=== PATIENT | male | born 1960 | race Caucasian/White ===

== ENCOUNTER → 2022-07-11 | Outpatient (CLI) | payer OTHER ==
[~2022-07-11] MED LIST: AMOX250 PO; FLUO20 PO; NORT25; OXYACE5T PO; TAMS.4ER PO
== END | disposition home or self-care (01) ==
LOC: PLD 13:40 → LAB SHORT 13:40
DX: K14.0 Glossitis (principal)
CPT/HCPCS: 88305; 88312

== ENCOUNTER → 2023-04-20 | Outpatient (CLI) | payer OTHER ==
[2023-04-20 13:30] LABS: BASOPHILS ABSOLUTE AUTO 0.07 K/mm3 (0.00-0.23); BASOPHILS PERCENT AUTO 1 % (0-2); EOSINOPHILS ABSOLUTE AUTO 0.42 K/mm3 (0.00-0.68); EOSINOPHILS PERCENT AUTO 5 % (0-6); Hematocrit 43.7 % (37.0-53.0); Hemoglobin 15.3 g/dL (13.5-17.5); IMMATURE GRAN ABSOLUTE AUTO 0.09 K/mm3 (0.00-0.10); IMMATURE GRAN PERCENT AUTO 1 % (0-1); LYMPHOCYTES ABSOLUTE AUTO 1.42 K/mm3 (0.84-5.20); LYMPHOCYTES PERCENT AUTO 18 % (21-46); MONOCYTES ABSOLUTE AUTO 0.74 K/mm3 (0.16-1.47); MONOCYTES PERCENT AUTO 10 % (4-13); Mean Corpuscular HGB 31.9 pg (26.0-34.0); Mean Corpuscular Volume 91 fL (80-100); Mean Platelet Volume 9.6 fL (9.1-12.4); NEUTROPHILS ABSOLUTE AUTO 5.04 K/mm3 (1.96-9.15); NEUTROPHILS PERCENT AUTO 65 % (41-73); Platelet Count 272 K/mm3 (150-400); RDW Coefficient Variation 13.2 % (11.7-14.2); RDW Standard Deviation 43.5 fL (35.1-46.3); Red Blood Cell Count 4.79 M/mm3 (4.30-5.90); White Blood Cell Count 7.78 K/mm3 (4.00-11.30)
[2023-04-20 15:35] LABS: Alanine Aminotransfer (ALT/SGP 55 U/L (12-78); Albumin, Blood 3.6 g/dL (3.4-5.0); Albumin/Globulin Ratio 0.9 (0.8-1.8); Alk Phos 91 U/L (50-136); Anion Gap 5 mmol/L (6-16); Aspartate Aminotrans (AST/SGOT 41 U/L (12-37); Bilirubin, Total 0.6 mg/dL (0.1-1.0); Blood Urea Nitrogen 10 mg/dL (8-24); CHOL/HDL RATIO 5.4; CO2, Blood 26 mmol/L (21-32); Calcium, Blood 8.9 mg/dL (8.5-10.1); Chloride, Blood 107 mmol/L (98-108); Cholesterol 185 mg/dL (50-200); Glucose, Blood 146 mg/dL (70-99); HDL Cholesterol 34 mg/dL (>39); Low Density Lipoprotein Chol 102 mg/dL (0-110); Potassium, Blood 3.9 mmol/L (3.5-5.5); Prostate Specific Antigen 0.422 ng/mL (0.000-4.000); Sodium, Blood 138 mmol/L (136-145); Total Protein, Blood 7.6 g/dL (6.4-8.2); Triglycerides 247 mg/dL (30-160); Very Low Density Lipoprot Chol 49 mg/dL (6-32)
[2023-04-20 15:59] LABS: Bun/Creatinine Ratio 11.4 (12.0-20.0); Creatinine, Blood 0.88 mg/dL (0.60-1.20); Glomerular Filtration Rate 98 (60-); Thyroid Stimulating Hormone 0.717 uIU/mL (0.360-4.800)
[2023-04-21 08:11] LABS: HEMOGLOBIN A1C 6.1 % (4.8-5.6)
== END | disposition home or self-care (01) ==
LOC: LAB SHORT 12:32
PROVIDERS: Family Medicine
DX: I10 Essential (primary) hypertension (principal); N42.9 Disorder of prostate, unspecified; R73.01 Impaired fasting glucose
CPT/HCPCS: 80053; 80061; 83036; 84153; 84443; 85025

== ENCOUNTER → 2024-06-01 | Outpatient (CLI) | payer OTHER ==
[2024-06-01 15:26] LABS: BASOPHILS ABSOLUTE AUTO 0.06 K/mm3 (0.00-0.23); BASOPHILS PERCENT AUTO 1 % (0-2); EOSINOPHILS ABSOLUTE AUTO 0.45 K/mm3 (0.00-0.68); EOSINOPHILS PERCENT AUTO 6 % (0-6); Hematocrit 46.5 % (37.0-53.0); IMMATURE GRAN ABSOLUTE AUTO 0.04 K/mm3 (0.00-0.10); IMMATURE GRAN PERCENT AUTO 1 % (0-1); LYMPHOCYTES ABSOLUTE AUTO 1.56 K/mm3 (0.84-5.20); LYMPHOCYTES PERCENT AUTO 22 % (21-46); MONOCYTES ABSOLUTE AUTO 0.59 K/mm3 (0.16-1.47); MONOCYTES PERCENT AUTO 8 % (4-13); Mean Corpuscular HGB 30.9 pg (26.0-34.0); Mean Corpuscular HGB Conc 34.4 g/dL (31.5-36.5); Mean Corpuscular Volume 90 fL (80-100); Mean Platelet Volume 10.1 fL (9.1-12.4); NEUTROPHILS ABSOLUTE AUTO 4.54 K/mm3 (1.96-9.15); NEUTROPHILS PERCENT AUTO 63 % (41-73); Platelet Count 267 K/mm3 (150-400); RDW Coefficient Variation 12.5 % (11.7-14.2); RDW Standard Deviation 40.9 fL (35.1-46.3); Red Blood Cell Count 5.18 M/mm3 (4.30-5.90); White Blood Cell Count 7.24 K/mm3 (4.00-11.30)
[2024-06-01 15:53] LABS: Alanine Aminotransfer (ALT/SGP 26 U/L (12-78); Albumin, Blood 3.8 g/dL (3.4-5.0); Alk Phos 67 U/L (50-136); Anion Gap 10 mmol/L (3-11); Aspartate Aminotrans (AST/SGOT 24 U/L (12-37); Bilirubin, Total 0.8 mg/dL (0.1-1.0); Blood Urea Nitrogen 19 mg/dL (8-24); Bun/Creatinine Ratio 21.4 (12.0-20.0); CO2, Blood 27 mmol/L (21-32); Calcium, Blood 9.1 mg/dL (8.5-10.1); Chloride, Blood 110 mmol/L (98-108); Cholesterol 145 mg/dL (50-200); Creatinine, Blood 0.89 mg/dL (0.60-1.20); Globulin, Blood 3.9 g/dL (2.2-4.0); Glomerular Filtration Rate 97 (60-); Glucose, Blood 82 mg/dL (70-99); HDL Cholesterol 29 mg/dL (>39); LDL/HDL RATIO 3.2; Low Density Lipoprotein Chol 92 mg/dL (0-110); Potassium, Blood 4.9 mmol/L (3.5-5.5); Prostate Specific Antigen 0.606 ng/mL (0.000-4.000); Sodium, Blood 142 mmol/L (136-145); Thyroid Stimulating Hormone 0.681 uIU/mL (0.360-4.800); Total Protein, Blood 7.7 g/dL (6.4-8.2); Triglycerides 122 mg/dL (30-160); Very Low Density Lipoprot Chol 24 mg/dL (6-32)
== END ==
LOC: LAB 13:49 → LAB SHORT 13:49
PROVIDERS: Family Medicine
DX: N42.9 Disorder of prostate, unspecified (principal); R73.01 Impaired fasting glucose; I10 Essential (primary) hypertension; R53.83 Other fatigue
CPT/HCPCS: 80053; 80061; 83036; 84153; 84443; 85025

== ENCOUNTER → 2025-04-13 | Outpatient (CLI) | payer MEDICARE, OTHER ==
[2025-04-13 10:46] LABS: BASOPHILS ABSOLUTE AUTO 0.05 K/mm3 (0.00-0.23); BASOPHILS PERCENT AUTO 1 % (0-2); EOSINOPHILS ABSOLUTE AUTO 0.42 K/mm3 (0.00-0.68); EOSINOPHILS PERCENT AUTO 5 % (0-6); Hematocrit 44.1 % (37.0-53.0); Hemoglobin 15.7 g/dL (13.5-17.5); IMMATURE GRAN ABSOLUTE AUTO 0.06 K/mm3 (0.00-0.10); IMMATURE GRAN PERCENT AUTO 1 % (0-1); LYMPHOCYTES ABSOLUTE AUTO 1.47 K/mm3 (0.84-5.20); LYMPHOCYTES PERCENT AUTO 19 % (21-46); MONOCYTES ABSOLUTE AUTO 0.61 K/mm3 (0.16-1.47); MONOCYTES PERCENT AUTO 8 % (4-13); Mean Corpuscular HGB Conc 35.6 g/dL (31.5-36.5); Mean Corpuscular Volume 89 fL (80-100); NEUTROPHILS ABSOLUTE AUTO 5.28 K/mm3 (1.96-9.15); NEUTROPHILS PERCENT AUTO 67 % (41-73); NRBC ABSOLUTE 0.00 K/mm3 (0.00-0.02); NRBC Auto 0.0 /100 WBC (0.0-0.2); Platelet Count 233 K/mm3 (150-400); RDW Coefficient Variation 12.6 % (11.7-14.2); RDW Standard Deviation 41.1 fL (35.1-46.3)
[2025-04-13 11:28] LABS: Alanine Aminotransfer (ALT/SGP 30 U/L (12-78); Albumin, Blood 3.8 g/dL (3.4-5.0); Albumin/Globulin Ratio 1.1 (0.8-1.8); Anion Gap 9 mmol/L (3-11); Aspartate Aminotrans (AST/SGOT 21 U/L (12-37); Bilirubin, Total 0.8 mg/dL (0.1-1.0); Blood Urea Nitrogen 13 mg/dL (8-24); CHOL/HDL RATIO 4.6; CO2, Blood 27 mmol/L (21-32); Calcium, Blood 8.4 mg/dL (8.5-10.1); Chloride, Blood 105 mmol/L (98-108); Cholesterol 172 mg/dL (50-200); Creatinine, Blood 0.84 mg/dL (0.60-1.20); Globulin, Blood 3.5 g/dL (2.2-4.0); Glucose, Blood 98 mg/dL (70-99); HDL Cholesterol 37 mg/dL (>39); LDL/HDL RATIO 2.2; Low Density Lipoprotein Chol 82 mg/dL (0-110); Potassium, Blood 4.1 mmol/L (3.5-5.5); Prostate Specific Antigen 0.572 ng/mL (0.000-4.000); Sodium, Blood 137 mmol/L (136-145); Thyroid Stimulating Hormone 0.652 uIU/mL (0.360-4.800); Total Protein, Blood 7.3 g/dL (6.4-8.2); Triglycerides 263 mg/dL (30-160); Very Low Density Lipoprot Chol 52 mg/dL (6-32)
== END ==
LOC: LAB 08:44 → LAB SHORT 08:44
PROVIDERS: Family Medicine
DX: R73.01 Impaired fasting glucose (principal); I10 Essential (primary) hypertension; N42.9 Disorder of prostate, unspecified; R53.83 Other fatigue
CPT/HCPCS: 80053; 80061; 83036; 84153; 84443; 85025